=== PATIENT | male | born 1985 | race Two or more races ===

== ENCOUNTER 2021-04-09 17:22 | Inpatient (IN) | payer OTHER ==
[~2021-04-09] VITALS: Ht 167.6 cm; Wt 75.0 kg
[2021-04-09 21:26] LABS: BASOPHILS % (AUTO) 0.5 % (0.0-2.0); EOSINOPHILS % (AUTO) 0.4 % (1.0-6.0); HEMATOCRIT 47.7 % (41-53); HEMOGLOBIN 16.2 g/dL (13.5-17.5); LYMPHOCYTES # (AUTO) 2.4 K/uL (1.0-4.8); LYMPHOCYTES % (AUTO) 19.5 % (22.0-44.0); MEAN CORPUSCULAR HEMOGLOBIN 33.2 pg (26.0-34.0); MEAN CORPUSCULAR VOLUME 97 fL (80-100); MONOCYTES # (AUTO) 0.8 K/uL (0.1-1.0); MONOCYTES % (AUTO) 6.6 % (2.0-9.0); PLATELET COUNT (AUTO) 201 K/uL (150-450); RED BLOOD CELL COUNT(AUTO) 4.89 MIL/uL (4.50-5.90); RED CELL DISTRIBUTION WIDTH 12.8 % (11.5-14.5)
[2021-04-09 21:36] LABS: ANION GAP 10 mmol/L (8-16); CALCIUM, TOTAL 8.9 mg/dL (8.8-10.5); CARBON DIOXIDE 30 mmol/L (22-29); CHLORIDE 104 mmol/L (98-107); CREATININE 0.84 mg/dL (0.60-1.30); GLOMERULAR FILTR. RATE CALC > 60 mL/min (>60); GLUCOSE,RANDOM 102 mg/dL (70-110); POTASSIUM 4.3 mmol/L (3.5-5.1); SODIUM SERUM 144 mmol/L (136-145); UREA NITROGEN, BLOOD 12 mg/dL (7-18)
[2021-04-09 21:41] LABS: ALANINE AMINOTRANSFERASE 75 U/L (12-78); ALBUMIN 3.9 g/dL (3.4-5.0); ALKALINE PHOSPHATASE 72 U/L (46-116); ASPARTATE AMINOTRANSFERASE 26 U/L (15-37); BILIRUBIN,TOTAL 0.5 mg/dL (0.1-1.0); TOTAL PROTEIN, SERUM 7.4 g/dL (6.4-8.2)
[2021-04-09] MEDS ORDERED: ONDANSETRON HCL 4 MG/2 ML VIAL IVP PRN ×2 (22:30→23:15)
[2021-04-09] MEDS ORDERED: ACETAMINOPHEN 325 MG TABLET PO PRN (22:30)
[2021-04-09 22:34] LABS: COVID AG,FIA SOURCE NASOPHARYNGEAL
[2021-04-09 22:45] LABS: AMPHET/METH SCREEN,URINE NEGATIVE (NEGATIVE); BARBITURATE SCREEN, URINE NEGATIVE (NEGATIVE); BENZODIAZEPINES SCREEN,URINE NEGATIVE (NEGATIVE); CANNABINOID SCREEN,URINE NEGATIVE (NEGATIVE); COCAINE SCREEN,URINE NEGATIVE (NEGATIVE); METHADONE SCREEN, URINE NEGATIVE (NEGATIVE); OPIATE SCREEN,URINE NEGATIVE (NEGATIVE); PHENCYCLIDINE SCREEN,URINE NEGATIVE (NEGATIVE)
[2021-04-10] MEDS: ACETAMINOPHEN 325 MG TABLET PO PRN ×3 (02:44→14:43)
[2021-04-10] MEDS: HEPARIN SODIUM,PORCINE 5,000 UNITS/ML VIAL SQ SCH ×4 (02:44→23:51)
[2021-04-10 12:12] VITALS: BP 132/76
[2021-04-10] MEDS ORDERED: INFLUENZA VIRUS VACCINE QVS 2021-22 (6MO+)/PF 60 MCG/0.5 ML SYRINGE IM. ONE (12:45)
[2021-04-10 20:15] VITALS: BP 116/64
[2021-04-10] MEDS: MELATONIN 3 MG TABLET PO PRN (20:54)
[2021-04-11 05:15] VITALS: BP 107/68
[2021-04-11 08:03] VITALS: BP 137/78
[2021-04-11] MEDS: HEPARIN SODIUM,PORCINE 5,000 UNITS/ML VIAL SQ SCH ×3 (08:13→23:10)
[2021-04-11] MEDS: FLUoxetine HCL 20 MG CAPSULE PO SCH (11:31)
[2021-04-11 16:13] VITALS: BP 125/72
[2021-04-11] MEDS: ACETAMINOPHEN 325 MG TABLET PO PRN (19:26)
[2021-04-11 19:45] VITALS: BP 114/72
[2021-04-11] MEDS ORDERED: DiphenhydrAMINE HCL 25 MG CAPSULE PO PRN (20:15)
[2021-04-12 04:50] VITALS: BP 107/63
[2021-04-12 07:35] VITALS: BP 117/56
[2021-04-12] MEDS: FLUoxetine HCL 20 MG CAPSULE PO SCH (08:15)
[2021-04-12] MEDS: HEPARIN SODIUM,PORCINE 5,000 UNITS/ML VIAL SQ SCH ×3 (08:15→23:00)
[2021-04-12 15:19] VITALS: BP 105/63
[2021-04-12] MEDS: ACETAMINOPHEN 325 MG TABLET PO PRN (15:41)
[2021-04-12 19:40] VITALS: BP 113/80
[2021-04-12] MEDS: TraZODone HCL 100 MG TABLET PO SCH (21:31)
[2021-04-12] MEDS: MELATONIN 3 MG TABLET PO PRN (21:32)
[2021-04-13 04:35] VITALS: BP 107/71
[2021-04-13 07:45] VITALS: BP 119/64
[2021-04-13] MEDS: FLUoxetine HCL 20 MG CAPSULE PO SCH (08:43)
[2021-04-13] MEDS: HEPARIN SODIUM,PORCINE 5,000 UNITS/ML VIAL SQ SCH ×3 (08:44→23:22)
[2021-04-13 16:04] VITALS: BP 110/72
[2021-04-13] MEDS: TraZODone HCL 100 MG TABLET PO SCH (20:14)
[2021-04-13 20:33] VITALS: BP 118/69
[2021-04-13] MEDS: MELATONIN 3 MG TABLET PO PRN (22:19)
[2021-04-14 05:09] VITALS: BP 104/60
[2021-04-14 08:14] VITALS: BP 108/67
[2021-04-14] MEDS: FLUoxetine HCL 20 MG CAPSULE PO SCH (08:40)
[2021-04-14] MEDS: HEPARIN SODIUM,PORCINE 5,000 UNITS/ML VIAL SQ SCH (08:40)
[2021-04-14] MEDS ORDERED: TRAZ-257 PO (13:11)
[2021-04-14] MEDS ORDERED: FLUO20CA36 PO (13:11)
[2021-04-14] MEDS ORDERED: MELA5TAB40 PO (13:12)
== END 2021-04-14 13:10 | DRG 885 ==
LOC: EMS 17:22 → 5S 04-10 05:26 → 6S 04-10 10:55
PROVIDERS: ADMIT Internal Medicine; ATTEND Internal Medicine
DX: F33.2 Major depressive disorder, recurrent severe without psychotic features (principal); R65.10 Systemic inflammatory response syndrome (SIRS) of non-infectious origin without acute organ dysfunction; T14.91XA Suicide attempt, initial encounter; F29 Unspecified psychosis not due to a substance or known physiological condition; F41.9 Anxiety disorder, unspecified; Z20.822 Contact with and (suspected) exposure to COVID-19; Z79.899 Other long term (current) drug therapy
CPT/HCPCS: 70450; 72125; 80053; 85025; 99285; G0480; J1644